=== PATIENT | male | born 1980 | race Caucasian/White ===

== ENCOUNTER 2020-01-27 18:24 | Emergency (ER) | payer OTHER, SELFPAY ==
--- NOTE | ~2020-01-27 | CT_ITS ---
EXAMINATION: CTA chest PE protocol EXAM DATE: 01/27/2020 19:23 INDICATION: Shortness of breath. TECHNIQUE: Spiral CTA of the chest (pulmonary arteries) was performed with 100 cc Omnipaque 350 intr avenous contrast injection. Images were acquired during the pulmonary arterial phase. Coronal maxi mum intensity projection 3D-reconstructions were created by the technologist on dedicated workstation . Axial, coronal and sagittal reformatted images were reviewed. The dose-length product (DLP) for t his examination was 428.58 mGy-cm. The exposure was tailored according to patient size (auto mA exp osure control), and iterative reconstruction (ASIR) was used as additional dose reduction technique. There is no prior study for comparison. FINDINGS: Pulmonary arteries are well opacified and without intraluminal filling defects. No thora cic aortic dissection. There is segmental left lower lobe airspace disease likely combination of ate lectasis and pneumonia. There is some left basilar endobronchial debris. There is 3 mm right lower lo be pleural-based nodule likely postinfectious. The lungs are otherwise clear. There are no pleural or pericardial effusions. There is no mediastinal, hilar or axillary lymphadenopathy. There is n o pneumothorax. Heart normal in size. No evidence of coronary arterial calcification. Upper abdo men is unremarkable. There is thoracic spondylosis without osteoblastic or osteolytic lesions ident ified. IMPRESSION: 1. Subsegmental left basilar airspace disease likely atelectasis and pneumonia. 2. No pulmonary emboli. Reviewed, dictated and finalized at location . IMPRESSION: 1. Subsegmental left basilar airspace disease likely atelectasis and pneumonia . 2. No pulmonary emboli.
[2020-01-27 18:37] VITALS: BP 118/83; PULSE 100; RESP 17; TEMP 37.2; O2SAT 94
--- NOTE | 2020-01-27 18:43 | ED.GENADULT ---
HPI - General Adult General Chief complaint: Extremity Injury, Lower Stated complaint: L leg swelling Time Seen by Provider: 01/27/20 18:28 Source: patient Mode of arrival: ambulatory Limitations: no limitations History of Present Illness HPI narrative: Patient is a 39-year-old male who presents to emergency department for evaluation of left calf pain that began last night is an aching pain to the left mid calf patient notes aching pain worse with activity and movement denies similar occurrence in the past does note he did have a history of a cyst behind the left knee but denies any knee pain patient notes he has history of chronic ear issues and notes that he has been congested with bilateral ear pain for the last several days as well but denies other URI symptoms fevers or chills. Or other complaints and does not take anything for symptoms and presents per private vehicle Related Data Allergies Allergy/AdvReac Type Severity Reaction Status Date / Time Penicillins Allergy Unknown Verified 01/27/20 18:42 Review of Systems Review of Systems: All systems reviewed & are unremarkable except as noted in HPI and below PMFSH Social History Social History (Updated 01/27/20 @ 18:45 by Yan Orr PA-C) Smoking status: Current every day smoker Gender identity (if verbalized by the patient): Male Exam Narrative: Exam Narrative: GENERAL: Well-appearing, well-nourished, and in no acute distress. HEAD: Normocephalic, atraumatic. EYES: PERRLA and EOMI. ENT: Nares clear, no rhinorrhea or epistaxis. Mucous membranes moist. Oropharynx without tonsillar hypertrophy exudate or other lesions. Patient with bilateral fluid level slightly erythematous nonbulging NECK: Supple. No adenopathy or masses. No carotid bruits or JVD CHEST: Clear to auscultation. No respiratory distress. No wheezes rales or rhonchi HEART: Regular rate and rhythm. No murmur heard. Normal peripheral pulses. EXTREMITIES: Normal range of motion. No edema. Tenderness of the left calf no deformity noted no knee pain SKIN: Warm, dry, no rash. NEURO: No focal deficits. Alert and oriented x3. Neurovascularly intact. Capillary refill less than 2 seconds PSYCH: Normal mood and affect. Course Consultations Consultation #1: Discussed case with primary on-call who is agreed to follow patient on an outpatient basis and is aware of the order for an ultrasound in the morning Date: 01/27/20 Time: 18:46 Vital Signs Vital signs: Vital Signs Temperature 98.9 F 01/27/20 18:37 Pulse Rate 100 01/27/20 18:37 Respiratory Rate 17 01/27/20 18:37 Blood Pressure 118/83 01/27/20 18:37 Pulse Oximetry 94 01/27/20 18:37 Temperature 98.9 F 01/27/20 18:37 Pulse Rate 100 01/27/20 18:37 Respiratory Rate 17 01/27/20 18:37 Blood Pressure 118/83 01/27/20 18:37 Pulse Oximetry 94 01/27/20 18:37 Medical Decision Making MDM Narrative Medical decision making narrative: Patient in the room at this time hemodynamically stable will have his scan of his chest to rule out PE given is 92% oxygenation he is not complaining of any URI symptoms or dyspnea patient also notes his mother had a history of DVT. Patient found to have pneumonia no PE will return tomorrow for rule out DVT will also follow with primary care has been advised to self quarantine will be tested for COVID-19 due to his upper respiratory symptoms. Patient is in grants with this feels comfortable in the room is not dyspneic will be discharged home with MDI instruct inhaler and antibiotics with strict instructions to return. Vital Signs Vital Signs: Vital Signs Temperature 98.9 F 01/27/20 18:37 Pulse Rate 100 01/27/20 18:37 Respiratory Rate 17 01/27/20 18:37 Blood Pressure 118/83 01/27/20 18:37 Pulse Oximetry 94 01/27/20 18:37 Temperature 98.9 F 01/27/20 18:37 Pulse Rate 100 01/27/20 18:37 Respiratory Rate 17 01/27/20 18:37 Blood Pressure 118/83 01/27/20 18:37 P
[2020-01-27 18:54] LABS: Basophils Absolute Auto 0.1 K/mm3 (0.0-0.1); Basophils Percent Auto 0.4 % (0.2-1.2); Eosinophils Percent Auto 0.1 % (0-4.4); Hematocrit 42.9 % (42.0-52.0); Hemoglobin 14.5 g/dL (14.0-18.0); Immature Granulocyte Absolute 0.06 K/mm3 (0.00-0.031); Immature Granulocyte Percent A 0.4 % (0-0.5); Lymphocytes Absolute Auto 1.52 K/mm3 (0.9-3.2); Lymphocytes Percent Auto 9.4 % (18.3-44.2); Mean Corpuscular HGB Conc 33.8 g/dl (32-36); Mean Corpuscular Hemoglobin 31.9 pg (26-34); Mean Corpuscular Volume 94.5 fl (80-100); Mean Platelet Volume 9.8 fl (7.4-10.4); Monocytes Absolute Auto 0.9 K/mm3 (0.1-0.6); Monocytes Percent Auto 5.5 % (2.6-8.5); Neutrophils Absolute Auto 13.6 K/mm3 (1.3-6.7); Neutrophils Percent Auto 84.2 % (45.5-73.1); Platelet Count Result 232 k/mm3 (150-375); Red Blood Count 4.54 M/mm3 (4.6-6.20); Red Cell Distribution Width 12.5 % (11.5-14.5); White Blood Count 16.1 K/mm3 (4.5-10.0)
[2020-01-27 19:03] LABS: Blood Urea Nitrogen 19 mg/dL (9-20); Calcium 8.7 mg/dL (8.4-10.2); Carbon Dioxide 32 mmol/L (22-30); Chloride 100 mmol/L (98-107); Estimated CRCL calculation 135 ml/min; Estimated Glomerular Filt Rate > 60; Glucose 133 mg/dL (75-110); Potassium 3.9 mmol/L (3.4-5.0); Sodium 136 mmol/L (137-145)
[2020-01-27 19:04] LABS: INR 1.2; Prothrombin Time 15.1 Seconds (11.1-14.7)
[2020-01-27 19:05] LABS: Partial Thromboplastin Time 29.9 SECONDS (22.3-36.8)
[2020-01-27 19:07] LABS: Alveolar/Arterial O2 Gradient 34.8 mmHg; Base Excess ABG 0.6 mEq/l (+/-2.0); Carboxyhemoglobin 2.8 % THb (0-2.0); Fractional Inspired Oxygen 21 %; HCO3 ABG 25.7 mEq/l (22.0-26.0); Methemoglobin ABG 0.3 %THb (0-1.5); Oxygen Content ABG 18.1 %vol (16.0-22.0); Oxygen Saturation ABG 92.1 % (95.0-100.0); Oxyhemoglobin 89.5 % THb (90.0-100.0); PO2 ABG 63.4 mmHg (80.0-100.0); PO2 FiO2 Ratio Arterial Blood 3.02 %; Reduced Hemoglobin 7.4 %THb (0-5.0); Total Hemoglobin 14.4 g/dL (12.0-18.0); pH ABG 7.394 (7.350-7.450)
[2020-01-27 19:09] LABS: Device ROOM AIR; Modified Allen's Test Pass; Site Drawn RIGHT RADIAL
[2020-01-27 19:30] VITALS: BP 114/75; PULSE 100; RESP 17; O2SAT 95
[2020-01-27] MEDS: ENOXAPARIN 100 MG/ML SYRINGE 99 MG SUB-Q (20:11)
[2020-01-27 20:34] VITALS: BP 124/78; PULSE 88; RESP 18; O2SAT 95
[2020-01-28 15:31] LABS: SARS-CoV-2 RNA PCR Negative
== END 2020-01-27 19:50 | disposition home or self-care (01) ==
PROVIDERS: Emergency Medicine Emergency Medical Services; Emergency Provider Emergency Medicine
DX: M79.662 Pain in left lower leg (principal); H66.90 Otitis media, unspecified, unspecified ear; J18.9 Pneumonia, unspecified organism; Z20.828 Contact with and (suspected) exposure to other viral communicable diseases; F17.200 Nicotine dependence, unspecified, uncomplicated
CPT/HCPCS: 36415; 36600; 71275; 80048; 82375; 82805; 83050; 85025; 85610; 85730; 87635; 96372; 96374; 99284; J0696; J1650; Q9967; U0003

== ENCOUNTER 2020-01-28 07:11 | Outpatient (CLI) | payer OTHER, SELFPAY ==
--- NOTE | ~2020-01-28 | US_ITS ---
EXAMINATION: US venous doppler [facility] DATE: 01/28/2020 07:48 INDICATION: Left lower limb pain and swelling TECHNIQUE: Sommers scale images without and with compression and Doppler images of the left lower extrem ity veins were obtained. COMPARISON: None FINDINGS: The left common femoral vein, profunda femoral vein, femoral vein, popliteal vein, peroneal trunk, posterior tibial veins, and greater saphenous vein are patent. IMPRESSION: 1. Patent left lower extremity veins. No evidence of deep venous thrombosis. Reviewed, dictated and finalized at location A.
== END 2020-01-28 07:12 | disposition home or self-care (01) ==
PROVIDERS: Visit Provider Emergency Medicine Emergency Medical Services
DX: M79.662 Pain in left lower leg (principal); M79.89 Other specified soft tissue disorders
CPT/HCPCS: 93971

== ENCOUNTER 2022-07-30 11:05 | Emergency (ER) | payer OTHER, SELFPAY ==
--- NOTE | 2022-07-30 11:09 | ED.URI ---
HPI - URI/Sore Throat General Chief Complaint: Upper Respiratory Infection Stated Complaint: DIZZY/NOT SLEEPING/DRAINAGE/SORE THROAT Source: patient and RN notes reviewed Mode of arrival: ambulatory Limitations: no limitations History of Present Illness HPI Narrative: 41-year-old male presents concern for several day history of sore throat, drainage, feeling dizzy, not taking well, general malaise. He reports he has been taking Tylenol. He reports his daughter has been in a. MD elicited complaint: sore throat Related Data Allergies Allergy/AdvReac Type Severity Reaction Status Date / Time No Known Allergies Allergy Verified 07/30/22 11:31 Review of Systems Review of Systems: CONSTITUTIONAL: Reports malaise EYES: Denies visual changes, redness, or discharge. ENT: Reports rhinorrhea, congestion, sore throat. Denies sinus pain, otalgia CARDIOVASCULAR: Denies chest pain, palpitations, or edema. RESPIRATORY: Reports cough. Denies dyspnea. GASTROINTESTINAL: Denies abdominal pain, nausea, vomiting, diarrhea SKIN: Denies rash or itching. MUSCULOSKELETAL: Reports myalgia. NEUROLOGIC: Denies headache. All systems reviewed & are unremarkable except as noted in HPI and below PMFSH Social History Social History (Updated 01/27/20 @ 18:45 by Yan Orr, RACHEL) Smoking status: Current every day smoker Gender identity (if verbalized by the patient): Male Comments At time of signature, agree with nursing past medical, surgical, social and family history. There is no relevant family history pertinent to the presenting complaint Exam Narrative: GENERAL: Well-appearing, well-nourished, and in no acute distress. HEAD: Normocephalic EYES: PERRLA, conjunctivae clear ENT: Nares clear, turbinates edematous and erythematous, clear discharge. Mucous membranes moist. TM pearly corcoran with dull light reflex bilaterally; no tragal tenderness. Oropharynx not erythematous without lesions. Tonsils not enlarged and without exudate, no drooling, no hoarseness, no trismus, uvula midline. NECK: Supple. No lymphadenopathy CHEST: Clear to auscultation, breath sounds equal. No wheezing, rhonchi, rales, or stridor. No respiratory distress, speaks in full sentences. HEART: Regular rate and rhythm. No murmur heard. SKIN: Warm, dry, no rash. NEURO: Alert and oriented x3. PSYCH: Normal mood and affect Course Course Emergency Course: Patient is aware of diagnosis, understands and agrees to treatment plan. Anticipatory guidance given. Patient agrees to follow-up as directed and is aware of reasons to seek care at the emergency department. Portions of this record may have been created with voice recognition software Level of Care: Express Care Visit Vital Signs Vital signs: Reviewed. MDM - URI/Sore Throat MDM Narrative Medical decision making narrative: Differential diagnosis considered: Lugo virus, strep pharyngitis, allergic rhinitis, upper respiratory tract infection, sinusitis, rhinosinusitis, nasopharyngitis. viral pharyngitis, otitis media, otitis externa, pneumonia, bronchitis, viral cough syndrome, viral syndrome, and influenza. Exam findings show no acute concerns or changes; patient is non-toxic appearing and is in no distress. Patient is appropriate for outpatient treatment and follow-up. Lab Data Attestation: I reviewed the patient's lab results. Critical Care Time Critical Care Time Critical Care Time: No Discharge Plan Discharge Clinical Impression: Strep throat Patient Disposition: Home, Self-Care Condition: Stable Instructions: Antibiotic Form, Strep Throat (ED) Additional Instructions: Your influenza test is negative, your strep test is positive -Take the medication as prescribed. Throw away the toothbrush after 24hours of antibiotic. -Eat and drink things that are easy to swallow, like tea or soup, or popsicles to suck on. -Oral rinses such as: Salt water gargles and/or may use topical anesthetic (eg.
[2022-07-30 11:13] VITALS: BP 125/88; PULSE 88; RESP 16; TEMP 36.5; O2SAT 100
== END 2022-07-30 11:52 | disposition home or self-care (01) ==
PROVIDERS: Emergency Provider Nurse Practitioner
DX: J02.0 Streptococcal pharyngitis (principal); F17.200 Nicotine dependence, unspecified, uncomplicated
CPT/HCPCS: 87804; 87880; 99213; G0463

== ENCOUNTER 2022-08-14 10:42 | Emergency (ER) | payer OTHER, SELFPAY ==
[2022-08-14 11:18] VITALS: BP 113/79; PULSE 92; RESP 16; TEMP 36.1; O2SAT 100
--- NOTE | 2022-08-14 11:52 | ED.URI ---
HPI - URI/Sore Throat General Chief Complaint: Upper Respiratory Infection Stated Complaint: cough, fatigue, chest pain, sore throat Time Seen by Provider: 08/14/22 11:20 Source: patient Mode of arrival: ambulatory Limitations: no limitations History of Present Illness HPI Narrative: Jeff is a 41-year-old male patient presenting to the clinic today with complaints of cough, fatigue, chest discomfort, sore throat, and chills/body aches. He reports that he was tested positive for strep approximately 2 weeks ago. He states he finished up his antibiotics for this. The throat is now better but feels a little irritated at this time. MD elicited complaint: cough, sore throat, nasal congestion and other (Fatigue, chest discomfort) Related Data Allergies Allergy/AdvReac Type Severity Reaction Status Date / Time Penicillins Allergy Mild Unknown Verified 08/14/22 11:27 Review of Systems Review of Systems: Pertinent positives per HPI. Patient denies any fever, chills, rash, headache, visual changes, dizziness, cough, shortness of breath, chest pain, palpitations, nausea, vomiting, diarrhea, constipation, abdominal pain, or any urinary issues. PMFSH Social History Social History Smoking status: Current every day smoker Gender identity (if verbalized by the patient): Male Comments At the time of my signature, I reviewed and agree with the nursing past medical, surgical, social, and family history. There is no relevant family history pertinent to the patient complaint. Exam Narrative: General: Well-developed, well nourished, in no apparent distress Head: Normocephalic, atraumatic Eyes: Pupils equally round and reactive to light bilaterally, EOM intact, sclera and conjunctive clear, no discharge, lids normal Ears: TMs intact and dull, ear canals clear, no drainage, grossly hearing normal. Nose: Nares patent, clear nasal discharge, no inflammation, no sinus tenderness. Mouth: Oral pharynx without lesions or masses, good dentition, MMM. Oropharynx red Neck: Supple, trachea midline, no enlargement of anterior or posterior cervical nodes, no thyroid masses or goiter palpable. Cardio: Regular rate and rhythm, s1 and s2 normal, no murmur appreciated. Resp: Clear to auscultation bilaterally, no rhonchi, rales, wheezing or rubs Course Course Emergency Course: Portions of this record may have been created with voice recognition software. Level of Care: Express Care Visit Vital Signs Vital signs: Vital Signs Temperature 36.1 C L 08/14/22 11:18 Pulse Rate 92 08/14/22 11:18 Respiratory Rate 16 08/14/22 11:18 Blood Pressure 113/79 08/14/22 11:18 Pulse Oximetry 100 08/14/22 11:18 Temperature 36.1 C L 08/14/22 11:18 Pulse Rate 92 08/14/22 11:18 Respiratory Rate 16 08/14/22 11:18 Blood Pressure 113/79 08/14/22 11:18 Pulse Oximetry 100 08/14/22 11:18 Vital signs reviewed MDM - URI/Sore Throat MDM Narrative Medical decision making narrative: At the time of visit patient is resting comfortably on the exam table. Influenza testing was completed and was negative in the clinic today. I suspect patient has URI pharyngitis/viral syndrome. Prescription for prednisone was sent to the pharmacy and he voiced understanding of discharge instructions and agrees to treatment plan. Differential Diagnosis Differential diagnosis: Likely upper respiratory infection, otitis media, sinusitis, viral infection, bronchitis, influenza, pharyngitis and other (COVID) Lab Data Labs: Influenza A Screen Negative Reference Range: Negative Influenza B Screen Negative Reference Range: Negative Discharge Plan Discharge Clinical Impression: Upper respiratory infection, Pharyngitis, Viral infection Patient Disposition: Home, Kathy
== END 2022-08-14 12:02 | disposition home or self-care (01) ==
PROVIDERS: Emergency Provider Nurse Practitioner Family
DX: J02.9 Acute pharyngitis, unspecified (principal); F17.200 Nicotine dependence, unspecified, uncomplicated
CPT/HCPCS: 87804; 99213; G0463

== ENCOUNTER 2024-01-05 07:55 | Emergency (ER) | payer OTHER, SELFPAY ==
[2024-01-05 08:06] VITALS: BP 149/91; PULSE 79; RESP 15; TEMP 36.4; O2SAT 100
--- NOTE | 2024-01-05 08:54 | ED.EXTPRO ---
HPI - Extremity Problem General Chief complaint: Extremity Problem,Nontraumatic Stated complaint: R big toe pain Time Seen by Provider: 01/05/24 08:19 History of Present Illness HPI Narrative: 43-year-old male presented emergency department for evaluation for great toe pain. Patient was recently on Keflex and states this helped little bit but patient still having pain of the great toe. Patient does have follow-up scheduled with Podiatry. Related Data Allergies Allergy/AdvReac Type Severity Reaction Status Date / Time Penicillins Allergy Mild Unknown Verified 08/14/22 11:27 Review of Systems Review of Systems: All systems reviewed & are unremarkable except as noted in HPI and below PMFSH Social History Social History Smoking status: Current every day smoker Gender identity (if verbalized by the patient): Male Exam Narrative: APPEARANCE: Well appearing, no pain, no distress, well-nourished. HEAD: normocephalic, atraumatic. EYES: PERRLA/EOMI, conjunctivae clear. NOSE: Normal no drainage EARS:TMS clear with good light reflex. THROAT: Pharynx clear, no exudate. NECK: Supple. No adenopathy, no masses. RESPIRATORY: Airway patent, respirations nonlabored. Clear to auscultation bilaterally, no rales, rhonchi, wheezing. CARDIOVASCULAR: Regular rate and rhythm without murmurs rubs or gallops. ABDOMINAL: Soft, nontender, nondistended, normal bowel sounds MUSCULOSKELETAL: Moves all extremities. Strength/ROM intact, No edema, No calf tenderness. NEURO: Alert. Cranial nerves II through XII intact. Good gait. Good coordination SKIN: Erythema of the great toe with no fluctuance or abscess, fungal infection of the great toenail, no significant paronychia Course Vital Signs Vital signs: Vital Signs Temperature 97.5 F L 01/05/24 08:06 Pulse Rate 79 01/05/24 08:06 Respiratory Rate 15 01/05/24 08:06 Blood Pressure 149/91 H 01/05/24 08:06 Pulse Oximetry 100 01/05/24 08:06 Oxygen Delivery Room Air 01/05/24 08:06 Temperature 97.5 F L 01/05/24 08:06 Pulse Rate 79 01/05/24 08:06 Respiratory Rate 15 01/05/24 08:06 Blood Pressure 149/91 H 01/05/24 08:06 Pulse Oximetry 100 01/05/24 08:06 Oxygen Delivery Room Air 01/05/24 08:06 MDM - Extremity (Nontraumatic) MDM Narrative Medical decision making narrative: 43 old male presenting emergency department for evaluation of a persistent infection of the great toe. Patient had been on a course of Keflex and had partial resolution of the infection. Patient was started on clindamycin emergency department. Patient states he is attempting to get follow-up with Podiatry. Patient was encouraged to try additional principal solutions architect for follow-up Differential Diagnosis Differential diagnosis: Likely cellulitis and other Discharge Plan Discharge Clinical Impression: Infection of toe Patient Disposition: Home, Self-Care Condition: Stable Instructions: Antibiotic Form Additional Instructions: Tylenol and ibuprofen for pain control. Antibiotic as directed. Continue the warm soaks. Attempt to have follow-up with Podiatry. If you have any worsening symptoms and please call or return to the emergency department. Prescriptions: New clindamycin HCl 150 mg capsule 150 mg PO Q6H 7 Days Qty: 28 0RF No Action prednisone 20 mg tablet 40 mg PO DAILY 5 Days Qty: 10 0RF Follow-up/Referrals: UNKNOWN,DOCTOR [Primary Care Provider] -
[2024-01-05] MEDS: CLINDAMYCIN HCL 150 MG CAP PO (09:03)
== END 2024-01-05 09:07 | disposition home or self-care (01) ==
PROVIDERS: Emergency Provider Emergency Medicine
DX: L08.9 Local infection of the skin and subcutaneous tissue, unspecified (principal); F17.200 Nicotine dependence, unspecified, uncomplicated
CPT/HCPCS: 99283; A9270